=== PATIENT | female | born 1990 | race Native Hawaiian/Other Pacific Islander ===

== ENCOUNTER 2020-04-22 07:28 | Outpatient (CLI) | payer OTHER ==
[2020-04-22 07:58] LABS: Hematocrit 38.7 % (30.3-42.9); Hemoglobin 12.8 gm/dl (10.1-14.3); Mean Corpuscular HGB Conc 33 % (30-34); Mean Corpuscular Volume 83 fl (79-97); Platelet Count 410 K/mm3 (140-440); Red Blood Count 4.66 M/mm3 (3.65-5.03); Red Cell Distribution Width 13.7 % (13.2-15.2)
[2020-04-22 08:16] LABS: ABG HCO3 25.3 mmol/L (20.0-26.0); ABG Methemoglobin 0.5 % (0.0-1.5); ABG Oxygen Saturation 97.4 % (95.0-99.0); ABG PCO2 39.4 mm Hg; ABG PH 7.426 pH Units (7.350-7.450); ABG PO2 94.5 mm Hg (80.0-90.0)
[2020-04-22 08:19] LABS: Alanine Aminotransferase 10 units/L (7-56); Albumin 3.9 g/dL (3.9-5); Blood Urea Nitrogen 10 mg/dL (7-17); Calcium 9.3 mg/dL (8.4-10.2); Chol/HDL Ratio 3.36 %; HDL Cholesterol 65 mg/dL (40-59); Hemolysis Index 9; LDL Cholesterol,Direct 152 mg/dL (50-130)
[2020-04-22 08:21] LABS: BUN/Creatinine Ratio 17
--- NOTE | 2020-04-22 10:49 | Fluoroscopy Report ---
UPPER GI HISTORY: GASTRO-ESOPHAGEAL REFLUX DISEASE. TECHNIQUE: Single and double contrast barium technique utilized to evaluate the esophagus, stomach, and duodenal C-loop. FINDINGS: To begin the exam, swallowing was evaluated in the lateral position under direct fluorosco py. Swallowing was normal. No mucosal irregularity, mass, mass effect, or critical stenosis. No hiatal hernia or gastroesophag eal reflux was witnessed during this exam. Gastric motility appears decreased. The duodenal bulb and duodenal sweep are unremarkable. IMPRESSION: No evidence for hiatal hernia, reflux or mucosal lesion. Mild gastroparesis is suspected . Fluoroscopic time: 2.7 minutes Number of fluoroscopic images: 27 Signer Name: Alessandro Meeks Jr, MD Signed: 04/22/2020 10:45 AM Workstation Name: [id number]
== END 2020-04-22 07:29 | disposition home or self-care (01) ==
LOC: FLUORO 07:28
PROVIDERS: ATTEND Internal Medicine
DX: K21.9 Gastro-esophageal reflux disease without esophagitis (principal); E07.9 Disorder of thyroid, unspecified; Z68.32 Body mass index [BMI] 32.0-32.9, adult
CPT/HCPCS: 36415; 36600; 74246; 80053; 80061; 82785; 82803; 84436; 84443; 85027